=== PATIENT | male | born 1980 | race Caucasian/White ===

== ENCOUNTER 2017-12-23 20:18 | Emergency (ER) | payer OTHER ==
[~2017-12-23] VITALS: Ht 185.4 cm; Wt 86.2 kg
[2017-12-23] MEDS ORDERED: TERBUTALINE SULFATE 1 MG/ML VIAL ONE ×2 (22:20→23:04)
[2017-12-23 22:23] VITALS: BP 172/87
--- NOTE | 2017-12-23 22:24 | NUR ---
PT BIB FRIEND, PT C/O PRIPISM X 8 HOURS, PT STATES HE TOOK 100MG VIAGRA AND TRIMEX INJECTION INTO PENIS X8 HOURS AGO. PATIENT SATTES PAIN 8/10 IN PENIS WITH ERECTION AT THIS MOMENT. A/OX4 WITH HIGH BLOOD PRESSURE AT THIS MOMENT BUT OTHERWISE VSS. WILL CONTINUE TO MONITOR FOR ANY CHANGES
--- NOTE | 2017-12-23 22:25 | NUR ---
PAGED RADIOLOGY SCHEDULER UROLOGIST
[2017-12-23] MEDS ORDERED: TERBUTALINE SULFATE 1 MG/ML VIAL SQ ONE ×2 (22:30→23:00)
[2017-12-23] MEDS ORDERED: ONDANSETRON HCL/PF 4 MG/2 ML VIAL ONE (22:42)
[2017-12-23] MEDS ORDERED: MORPHINE SULFATE INJ 4 MG/ML DISP.SYRIN ONE (22:43)
[2017-12-23] MEDS ORDERED: ONDANSETRON HCL/PF 4 MG/2 ML VIAL IV ONE (23:00)
[2017-12-23] MEDS ORDERED: MORPHINE SULFATE INJ 2 MG/ML DISP.SYRIN IV ONE (23:00)
== END 2017-12-23 23:29 | disposition short-term general hospital (02) ==
LOC: ER 20:27
DX: N48.33 Priapism, drug-induced (principal)
CPT/HCPCS: 96372 ×2; 96374; 96375; 99285; A4606; J2270; J2405; J3105 ×2; Z7610